=== PATIENT | female | born 1990 | race American Indian/Alaskan Native ===

== ENCOUNTER 2020-06-10 00:23 | Emergency (ER) | payer OTHER ==
[2020-06-10] MEDS ORDERED: DIPHtheria,PERTUSSIS(ACELL),TETANUS VACCINE/PF 0.5 ML VIAL IM ONE (02:45)
[2020-06-10] MEDS ORDERED: IBUPROFEN 600 MG TAB PO ONE (02:45)
[2020-06-10] MEDS ORDERED: LIDOCAINE-MPF (1%) 10 MG/1 ML VIAL 5 ML INFILTRATI ONE (02:45)
--- NOTE | 2020-06-10 05:41 | Emergency Department Report ---
- General Chief Complaint: Wound/Laceration Stated Complaint: KNEE INJURY Source: patient Mode of arrival: Ambulatory Limitations: No Limitations - History of Present Illness Initial Comments: Patient is a 29-year-old -Irish female with no past medical history presents to the ED with complaint of acute onset persistent anterior left knee pain after a sharp edge of a metallic chair cut her left knee as she passed around it at work about 1 hour ago. 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 Patient states that she is not up-to-date with her tetanus vaccinations. Patient denies numbness and tingling or weakness of left leg, nausea, vomiting, syncope, fall, back pain, chest pain or shortness of breath. -: Sudden, hour(s) (1) Location: other (Anterior left knee) Extremity Location: Left: Knee (Anterior left knee laceration) 1 - Bleeding laceration of anterior left knee Place: work Patient Tetanus UTD: No (Given during this visit) Context: accidental, sharp object use Associated Symptoms: pain, other (Bleeding laceration). denies: loss of feeling/numbness, suspect foreign body present, unable to move injured part, weakness followed by dizziness, nausea/vomiting, fever - Related Data Previous Rx's Medication Instructions Recorded Last Taken Type Ibuprofen [Motrin] 600 mg PO Q8H PRN #24 tablet 06/10/20 Unknown Rx cephALEXin [Keflex] 500 mg PO Q12HR #20 cap 06/10/20 Unknown Rx Allergies Allergy/AdvReac Type Severity Reaction Status Date / Time No Known Allergies Allergy Unverified 06/10/20 02:16 ED Review of Systems ROS: Stated complaint: KNEE INJURY Other details as noted in HPI Constitutional: denies: chills, fever Eyes: denies: eye pain, eye discharge, vision change ENT: denies: ear pain, throat pain Respiratory: denies: cough, shortness of breath, wheezing Cardiovascular: denies: chest pain, palpitations Endocrine: no symptoms reported Gastrointestinal: denies: abdominal pain, nausea, diarrhea Genitourinary: denies: urgency, dysuria, discharge Musculoskeletal: arthralgia (Mild left knee pain due to a bleeding laceration wound). denies: back pain, joint swelling Skin: other (Bleeding laceration wound on anterior left knee). denies: rash, lesions Neurological: denies: headache, weakness, paresthesias Psychiatric: denies: anxiety, depression Hematological/Lymphatic: denies: easy bleeding, easy bruising ED Past Medical Hx - Past Medical History Previous Medical History?: No - Surgical History Past Surgical History?: No - Social History Smoking Status: Never Smoker Substance Use Type: Marijuana - Medications Home Medications: Home Medications Medication Instructions Recorded Confirmed Last Taken Type Ibuprofen [Motrin] 600 mg PO Q8H PRN #24 tablet 06/10/20 Unknown Rx cephALEXin [Keflex] 500 mg PO Q12HR #20 cap 06/10/20 Unknown Rx ED Physical Exam - General Limitations: No Limitations General appearance: alert, in no apparent distress - Head Head exam: Present: atraumatic, normocephalic, normal inspection - Eye Eye exam: Present: normal appearance, PERRL, EOMI Pupils: Present: normal accommodation - ENT ENT exam: Present: normal exam, normal orophraynx, mucous membranes moist, TM's normal bilaterally, normal external ear exam - Neck Neck exam: Present: normal inspection, full ROM - Respiratory Respiratory exam: Present: normal lung sounds bilaterally. Absent: respiratory distress, wheezes, rales, rhonchi, stridor, chest wall tenderness, accessory muscle use, decreased breath sounds - Cardiovascular Cardiovascular Exam: Present: regular rate, normal rhythm, normal heart sounds. Absent: systolic murmur, diastolic murmur, rubs, gallop - GI/Abdominal GI/Abdominal exam: Present: soft, normal bowel sounds. Absent: tenderness, guarding, rebound, hyperactive bowel sounds, hypoactive bowel sounds, organ omegaly - Extremities Exam Extremities exam: Present: normal inspection, full ROM, tenderness (Palpable mild left knee tenderness due to a bleeding 3 cm laceration on anterior left knee), normal capillary refill. Absent: calf tenderness - Back Exam Back exam: Present: normal inspection, full ROM. Absent: tenderness, CVA tenderness (L), muscle spasm, paraspinal tenderness, vertebral tenderness - Neurological Exam Neurological exam: Present: alert, oriented X3, CN II-XII intact, normal gait, reflexes normal - Psychiatric Psychiatric exam: Present: normal affect, normal mood - Skin Skin exam: Present: warm, dry, intact, normal color, other (Bleeding 3 cm laceration on anterior left knee). Absent: rash ED Course Vital Signs 06/10/20 02:12 Temperature 98.5 F Pulse Rate 82 Respiratory 16 Rate Blood Pressure 97/61 O2 Sat by Pulse 98 Oximetry - Laceration /Wound Repair Left Anterior Knee Wound Location: lower extremity (Anterior left knee) Wound Length (cm): 3 Wound's Depth, Shape: superficial, linear Wound Explored: contaminated Irrigated w/ Saline (ccs): 50 Betadine Prep?: Yes Anesthesia: 1% Lidocaine Volume Anesthetic (ccs): 5 Wound Debrided: extensive Wound Repaired With: sutures Suture Size/Type: 3:0, proline Number of Sutures: 7 Layer Closure?: No Sterile Dressing Applied?: Yes Progress: The patient left left knee laceration wound was cleaned thoroughly with normal saline and Betadine solution. Lidocaine 1% solution was used for local anesthetic. The wound was then sutured per protocol and the patient tolerated procedure well. The wound was then dressed appropriately and the patient was discharged home on pain medications and prophylactic antibiotics. The patient was advised to return to the ED immediately if symptoms get worse, otherwise follow-up with her primary care physician in 7 to 10 days for reevaluation. Patient was also advised to return to the ED or to her primary care physician in 12 to 14 days for suture removal. ED Medical Decision Making - Medical Decision Making This is a 29-year-old -Irish female with no past medical history presents to the ED with complaint of acute onset persistent anterior left knee pain after a sharp edge of a metallic chair cut her left knee as she passed around it at work about 1 hour ago. 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 Patient states that she is not up-to-date with her tetanus vac cinations. In the ED, patient is alert and oriented x3 and is not in distress. Patient was treated for pain in the ED and also received booster tetanus vaccinations. Left knee bleeding laceration was cleaned thoroughly with normal saline and Betadine solution. Lidocaine 1% solution was used as a local anesthetics. The wound was then sutured per protocol and the patient tolerated the procedure well. The wound was then dressed appropriately and the patient was discharged home on pain medication and prophylactic antibiotics, and was advised to follow-up with her primary care physician in 7 to 10 days for reevaluation. Patient was also advised return to the ED immediately if symptoms get worse. Patient was otherwise advised to return to the ED or to her primary care physician in 12 to 14 days for suture removal. - Differential Diagnosis Laceration; puncture wound; abrasions; knee contusion Critical care attestation.: If time is entered above; I have spent that time in minutes in the direct care of this critically ill patient, excluding procedure time. ED Disposition Clinical Impression: Laceration of left knee without complication Qualifiers: Encounter type: initial encounter Qualified Code(s): S81.012A - Laceration without foreign body, left knee, initial encounter Disposition: TO HOME OR SELFCARE Is pt being admited?: No Does the pt Need Aspirin: No Condition: Stable Instructions: Laceration Care, Adult, [id number], Sutured Wound Care Additional Instructions: Take medications with food, drink plenty of fluids and follow-up with your primary care physician in 7 to 10 days for reevaluation. Return to the ED immediately if symptoms get worse. Otherwise return to the ED in 12 to 14 days for suture removal. Prescriptions: cephALEXin [Keflex] 500 mg PO Q12HR #20 cap Ibuprofen [Motrin] 600 mg PO Q8H PRN #24 tablet PRN Reason: Pain Referrals: [facility] [Provider Group] - 7-10 days Forms: Work/School Release Form(ED) Time of Disposition: 05:47 Print Language: WELSH
[2020-06-10 07:20] VITALS: BP 110/68
== END 2020-06-10 06:27 | disposition home or self-care (01) ==
LOC: ED 00:23
DX: S81.012A Laceration without foreign body, left knee, initial encounter (principal); F12.10 Cannabis abuse, uncomplicated; Z79.1 Long term (current) use of non-steroidal anti-inflammatories (NSAID); Z79.899 Other long term (current) drug therapy; W26.9XXA Contact with unspecified sharp object(s), initial encounter; Y93.9 Activity, unspecified; Y92.89 Other specified places as the place of occurrence of the external cause; Y99.8 Other external cause status
CPT/HCPCS: 90471; 90715; 99282